=== PATIENT | male | born 1950 | race Caucasian/White ===

== ENCOUNTER → 2017-02-19 | Outpatient (CLI) | payer BC, OTHER | LOC: ULTRA 15:18 | DX: H47.019 Ischemic optic neuropathy, unspecified eye (principal) ==

== ENCOUNTER 2017-05-25 10:44 | Emergency (ER) | payer BC, OTHER ==
[~2017-05-25] VITALS: Ht 182.9 cm; Wt 104.3 kg
[2017-05-25] MEDS ORDERED: SALINE NASAL SP30 ML NASAL (11:19)
[2017-05-25] MEDS ORDERED: CLEOCIN HCL150 MG PO (15:41)
== END 2017-05-25 11:46 | disposition home or self-care (01) ==
LOC: ER 10:44
DX: R04.0 Epistaxis (principal); E78.00 Pure hypercholesterolemia, unspecified; Z88.2 Allergy status to sulfonamides

== ENCOUNTER 2017-05-25 15:27 | Emergency (ER) | payer BC, OTHER ==
[~2017-05-25] VITALS: Ht 182.9 cm; Wt 104.3 kg
[~2017-05-25 15:27] MED LIST: SALINE NASAL SP30 ML NASAL
[2017-05-25] MEDS ORDERED: CLEOCIN HCL150 MG PO (15:41)
== END 2017-05-25 16:24 | disposition home or self-care (01) ==
LOC: ER 15:27
DX: R04.0 Epistaxis (principal); E78.00 Pure hypercholesterolemia, unspecified; Z88.2 Allergy status to sulfonamides

== ENCOUNTER → 2020-09-21 | Outpatient (CLI) | payer OTHER, BC ==
[~2020-09-21] MED LIST changes: +CLEOCIN HCL150 MG PO
[2020-09-21 10:25] LABS: CREATININE 1.2 mg/dL (0.7-1.3)
== END ==
LOC: LAB 09:07
PROVIDERS: ATTEND Family Medicine
DX: R05 Cough (principal)